=== PATIENT | male | born 1965 | race African-American/Black ===

== ENCOUNTER 2018-06-05 17:57 | Emergency (ER) | payer MEDICAID ==
[~2018-06-05] VITALS: Ht 162.6 cm; Wt 68.0 kg
[2018-06-05] MEDS ORDERED: ASPIRIN81 MG ORAL (18:02)
[2018-06-05] MEDS ORDERED: LISINOPRIL5 MG ORAL (18:02)
[2018-06-05] MEDS ORDERED: CARVEDILOL3.125 MG ORAL (18:02)
[2018-06-05] MEDS ORDERED: ATORVASTATIN CA20 MG ORAL (18:02)
--- NOTE | 2018-06-05 18:04 | NUR ---
Note eugenie in EDM - 06/05/18 at 1850 by GALILEA ED Nurse Note: patient came in by ambulance nausea and vomiting patient c/o pt. was BIBA from home with nausea vomiting abd pain since friday, pt. had bowel movement today
--- NOTE | 2018-06-05 18:04 | NUR ---
ED Nurse Note: patient came in from home by ambulance, c/o abd pain, nausea and vomiting patient said this pain started since , but it got worse today.
[2018-06-05] MEDS ORDERED: Sodium Chloride 500ML 500 ML IV ONE (18:10)
[2018-06-05] MEDS ORDERED: Isovue-300 100ml vial INJ PRN (18:15)
[2018-06-05] MEDS ORDERED: Morphine Sulfate 4mg/ml Inj (IV/IM USE ONLY) IVP ONE (18:15)
[2018-06-05 18:33] LABS: BASOPHILS % (AUTO) 0.7 % (0.0-2.0); EOSINOPHILS % (AUTO) 0.4 % (0.0-3.0); HEMATOCRIT 43.8 % (42.0-52.0); LYMPHOCYTES % (AUTO) 25.4 % (20.0-45.0); MEAN CORPUSCULAR VOLUME 91 FL (80-99); MONOCYTES % (AUTO) 6.4 % (1.0-10.0); NEUTROPHILS % (AUTO) 67.1 % (45.0-75.0); PLATELET COUNT 289 K/UL (150-450); RED BLOOD COUNT 4.83 M/UL (4.70-6.10); WHITE BLOOD COUNT 7.5 K/UL (4.8-10.8)
[2018-06-05 18:34] VITALS: BP 109/63
--- NOTE | 2018-06-05 18:37 | Emergency Room Report ---
History of Present Illness General Chief Complaint: Nausea Source: Patient Present Illness HPI patient presents with 2 days of epigastric pain that radiates diffusely. positive for vomiting, no diarrhea. no fever. no other assoc symptoms Allergies: Coded Allergies: No Known Allergies (Unverified , 06/05/18) Patient History Past Surgical History: CABG Pertinent Family History: none Nursing Documentation-PM Past Medical History: No History, Except For Hx Cardiac Problems: Yes - CABG in 2016 Hx Hypertension: Yes Review of Systems All Other Systems: negative except mentioned in HPI Physical Exam Vital Signs Date Time Temp Pulse Resp B/P (MAP) Pulse Ox O2 Delivery O2 Flow Rate FiO2 06/05/18 17:54 98.6 81 16 115/62 98 Room Air General Appearance: well appearing, no apparent distress Head: normocephalic, atraumatic ENT: hearing grossly normal, normal voice Respiratory: no respiratory distress, speaking full sentences Gastrointestinal: tenderness - diffusely, decreased bowel sounds Musculoskeletal: no calf tenderness Neurologic: alert, normal gait Psychiatric: mood/affect normal Medical Decision Making Diagnostic Impression: Primary Impression: Abdominal pain ER Course Patient presented was noted complexity or risk requiring multiple bedside evaluation. The patient is nontoxic-appearing. Has very conservative acute small bowel obstruction, intra-abdominal abscess, appendicitis, abdominal aortic aneurysm. The patient is able to part a by mouth challenge. He is alert. He has no other associated symptoms. He is afebrile. CT was reviewed. Blood work was reviewed as well. At this time I feel the patient will be discharged home with very close follow-up with his primary care physician as an outpatient to return if any change in symptoms or worsening symptoms. Laboratory Tests Test 06/05/18 18:19 06/05/18 18:38 White Blood Count 7.5 K/UL (4.8-10.8) Red Blood Count 4.83 M/UL (4.70-6.10) Hemoglobin 15.0 G/DL (14.2-18.0) Hematocrit 43.8 % (42.0-52.0) Mean Corpuscular Volume 91 FL (80-99) Mean Corpuscular Hemoglobin 31.0 PG (27.0-31.0) Mean Corpuscular Hemoglobin Concent 34.3 G/DL (32.0-36.0) Red Cell Distribution Width 11.0 % (11.6-14.8) L Platelet Count 289 K/UL (150-450) Mean Platelet Volume 6.5 FL (6.5-10.1) Neutrophils (%) (Auto) 67.1 % (45.0-75.0) Lymphocytes (%) (Auto) 25.4 % (20.0-45.0) Monocytes (%) (Auto) 6.4 % (1.0-10.0) Eosinophils (%) (Auto) 0.4 % (0.0-3.0) Basophils (%) (Auto) 0.7 % (0.0-2.0) Sodium Level 138 MMOL/L (136-145) Potassium Level 3.9 MMOL/L (3.5-5.1) Chloride Level 102 MMOL/L (98-107) Carbon Dioxide Level 26 MMOL/L (21-32) Anion Gap 10 mmol/L (5-15) Blood Urea Nitrogen 10 mg/dL (7-18) Creatinine 1.1 MG/DL (0.55-1.30) Estimate Glomerular Filtration Rate > 60 mL/min (>60) Glucose Level 93 MG/DL (74-106) Calcium Level 9.1 MG/DL (8.5-10.1) Total Bilirubin 0.5 MG/DL (0.2-1.0) Aspartate Amino Transferase (AST) 28 U/L (15-37) Alanine Aminotransferase (ALT) 43 U/L (12-78) Alkaline Phosphatase 60 U/L (46-116) Total Protein 8.0 G/DL (6.4-8.2) Albumin 4.2 G/DL (3.4-5.0) Globulin 3.8 g/dL Albumin/Globulin Ratio 1.1 (1.0-2.7) Lipase 88 U/L (73-393) Urine Color Yellow Urine Appearance Clear Urine pH 5 (4.5-8.0) Urine Specific [place] 1.020 (1.005-1.035) Urine Protein Negative (NEGATIVE) Urine Glucose (UA) Negative (NEGATIVE) Urine Ketones 2+ (NEGATIVE) H Urine Blood Negative (NEGATIVE) Urine Nitrite Negative (NEGATIVE) Urine Bilirubin Negative (NEGATIVE) Urine Urobilinogen Normal MG/DL (0.0-1.0) Urine Leukocyte Esterase Negative (NEGATIVE) Urine RBC 0-2 /HPF (0 - 0) H Urine WBC 0-2 /HPF (0 - 0) Urine Squamous Epithelial Cells Few /LPF (NONE/OCC) Urine Bacteria Few /HPF (NONE) Urine Mucus Many /LPF (NONE/OCC) H Last Vital Signs Date Time Temp Pulse Resp B/P (MAP) Pulse Ox O2 Delivery O2 Flow Rate FiO2 06/05/18 18:34 98.6 82 13 109/63 99 Room Air Disposition: HOME, SELF-CARE Condition: Stable Scripts Tramadol HCl (Tramadol HCl ER) 150 Mg Cpbp.25.75 50 MG ORAL QID PRN for For Pain for 7 Days, #20 CAP Prov: RHIANNA YBARRA 06/05/18 Patient Instructions: Abdominal Pain, Adult, [id number], Nausea, Adult RHIANNA YBARRA Jun 05, 2018 18:37
[2018-06-05 18:49] LABS: ANION GAP 10 mmol/L (5-15); BLOOD UREA NITROGEN 10 mg/dL (7-18); CALCIUM 9.1 MG/DL (8.5-10.1); CARBON DIOXIDE 26 MMOL/L (21-32); CHLORIDE 102 MMOL/L (98-107); CREATININE 1.1 MG/DL (0.55-1.30); POTASSIUM 3.9 MMOL/L (3.5-5.1); SODIUM 138 MMOL/L (136-145)
[2018-06-05 18:53] LABS: ALANINE AMINOTRANSFERASE 43 U/L (12-78); ALBUMIN 4.2 G/DL (3.4-5.0); ALBUMIN/GLOBULIN RATIO 1.1 (1.0-2.7); ALKALINE PHOSPHATASE 60 U/L (46-116); ASPARTATE AMINO TRANSFERASE 28 U/L (15-37); BILIRUBIN,TOTAL 0.5 MG/DL (0.2-1.0)
--- NOTE | 2018-06-05 18:58 | NUR ---
ED Nurse Note: patient went down for CT
--- NOTE | 2018-06-05 19:18 | NUR ---
HAND-OFF: Report given to Jo Ann Mathew RN.
[2018-06-05 19:19] LABS: APPEARANCE,URINE CLEAR; BILIRUBIN, URINE NEGATIVE (NEGATIVE); GLUCOSE, URINE (UA) NEGATIVE (NEGATIVE); KETONES,URINE 2+ (NEGATIVE); LEUKOCYTE ESTERASE ,URINE NEGATIVE (NEGATIVE); NITRITE,URINE NEGATIVE (NEGATIVE); PH,URINE 5 (4.5-8.0); PROTEIN,URINE NEGATIVE (NEGATIVE); UROBILINOGEN,URINE NORMAL MG/DL (0.0-1.0)
--- NOTE | 2018-06-05 19:23 | Diagnostic Imaging Report ---
EXAM: CT Abdomen and Pelvis With Intravenous Contrast CLINICAL HISTORY: ABD PAIN TECHNIQUE: Axial computed tomography images of the abdomen and pelvis with intravenous contrast. CTDI is 10.01 mGy and DLP is 454 mGy-cm. One or more of the following dose reduction techniques were used: automated exposure control, adjustment of the mA and/or kV according to patient size, use of iterative reconstruction technique. COMPARISON: No relevant prior studies available. FINDINGS: Lung bases: Unremarkable. ABDOMEN: Liver: Unremarkable. Gallbladder and bile ducts: The gallbladder is not visualized. Pancreas: Unremarkable. Spleen: Unremarkable. Adrenals: Unremarkable. Kidneys and ureters: Unremarkable. No hydronephrosis. Stomach and bowel: No domi mural thickening. Nonobstructive bowel gas pattern. PELVIS: Appendix: No findings to suggest acute appendicitis. Bladder: Unremarkable. Reproductive: Unremarkable. ABDOMEN and PELVIS: Intraperitoneal space: Unremarkable. Bones/joints: No acute fracture. Soft tissues: Unremarkable. Vasculature: Unremarkable. No abdominal aortic aneurysm. Lymph nodes: No enlarged lymph nodes. IMPRESSION: No acute findings.
[2018-06-05 19:29] LABS: COLOR,URINE YELLOW
--- NOTE | 2018-06-05 19:30 | NUR ---
ER Nurse Note: PT a&ox4, VSS, came back from radiology; awaitnig results. Pt denies pain, n/v. Will continue to monitor
[2018-06-05] MEDS ORDERED: TRAMADOL HCL150 MG ORAL (21:00)
[2018-06-05] MEDS ORDERED: ZOFRAN4 MG ORAL (22:12)
[2018-06-05 22:45] VITALS: BP 122/68
--- NOTE | 2018-06-05 22:45 | NUR ---
ER Nurse Note: Pt seen, treated, medically cleared by ERMD for discharge. Discharge instructions and prescriptions given with repeat verbalization by pt. Instructed pt to follow up with primary care phyican within one weel. Pt a&ox4, VSS, no signs of distress. IV removed, site clean and bandaged. ID band removed; left with all belongings on steady gait, via own transportation.
== END 2018-06-05 22:45 | disposition home or self-care (01) ==
LOC: EDBD 17:57 → EMR 19:37
DX: R10.13 Epigastric pain (principal); I10 Essential (primary) hypertension; Z95.1 Presence of aortocoronary bypass graft
CPT/HCPCS: 36415; 74177; 80053; 81001; 83690; 85025; 96374; 96375; 99284; J2270; J2405; Q9967

== ENCOUNTER 2019-01-21 01:47 | Inpatient (IN) | payer MEDICAID ==
[~2019-01-21] VITALS: Ht 162.6 cm; Wt 56.7 kg
--- NOTE | 2019-01-21 01:45 | NUR ---
ED Nurse Note: pt BIBA RA 68 from work for C/O CP 12/26 since few hours ago. non radiating. Nitro x3, 161mg ASA given by cook boat and is ineffective. Bp 100/80, pr 82, rr 15, sp02 100% RA
[~2019-01-21 01:47] MED LIST: ASPIRIN81 MG ORAL; ATORVASTATIN CA20 MG ORAL; CARVEDILOL3.125 MG ORAL; LISINOPRIL5 MG ORAL; TRAMADOL HCL150 MG ORAL; ZOFRAN4 MG ORAL
[2019-01-21 01:48] VITALS: BP 100/80
--- NOTE | 2019-01-21 02:09 | Emergency Room Report ---
History of Present Illness General Chief Complaint: Chest Pain Source: Patient Present Illness HPI This is a 53-year-old male with a history of [place] in the past with one-vessel CABG in 2016. He presents with complaint of chest pain. Onset about an hour ago. Pain is midsternal pain. No radiation. Sharp in nature. 8 out of 10. No relief with nitro or aspirin by EMS. Said it felt similar to previous [place]. But he also has chills and a cough. Cough has been starting this morning. No exertional component. No diaphoresis. No shortness of breath. Allergies: Coded Allergies: No Known Allergies (Unverified , 06/05/18) Patient History Past Medical History: see triage record, old chart reviewed, HTN Past Surgical History: CABG Pertinent Family History: none Social History: Denies: smoking, alcohol use Immunizations: other Reviewed Nursing Documentation: PMH: Agreed; PSxH: Agreed Nursing Documentation-PMH Hx Cardiac Problems: Yes - CABG in 2016 Hx Hypertension: Yes Review of Systems Eye: Denies: eye pain, blurred vision ENT: Denies: ear pain, nose congestion, throat swelling Respiratory: Reports: cough; Denies: shortness of breath Cardiovascular: Reports: chest pain; Denies: palpitations Gastrointestinal: Denies: abdominal pain, diarrhea, nausea, vomiting Musculoskeletal: Denies: back pain, joint pain Skin: Denies: rash Neurological: Denies: headache, numbness Endocrine: Denies: increased thirst, increased urine Hematologic/Lymphatic: Denies: easy bruising All Other Systems: negative except mentioned in HPI Physical Exam Vital Signs Date Time Temp Pulse Resp B/P (MAP) Pulse Ox O2 Delivery O2 Flow Rate FiO2 01/21/19 01:41 98.2 89 16 116/68 (84) 98 Room Air 01/21/19 01:48 100 VS normal Sp02 EP Interpretation: reviewed, normal General Appearance: well appearing, no apparent distress, alert Head: normocephalic, atraumatic Eyes: bilateral eye PERRL, bilateral eye EOMI ENT: hearing grossly normal, normal pharynx Neck: full range of motion, supple, no meningismus Respiratory: chest non-tender, lungs clear, normal breath sounds Cardiovascular #1: regular rate, rhythm, no murmur Gastrointestinal: normal bowel sounds, non tender, no mass, no organomegaly, no bruit, non-distended Musculoskeletal: back normal, gait/station normal, normal range of motion Psychiatric: mood/affect normal Medical Decision Making Diagnostic Impression: Primary Impression: Chest pain Qualified Codes: R07.9 - Chest pain, unspecified ER Course Patient with presents with chest pain. He does have previous CABG and said it was similar to that. No evidence of ST elevation [place]. No evidence of PE, dissection, pneumonia to name a few. Will admit for further work-up. I discussed the case with Dr. Beatty. Lab Results Impression Labs unremarkable EKG Diagnostic Results Rate: normal Rhythm: NSR ST Segments: no acute changes ASA given to the pt in ED: No Rhythm Strip Diag. Results EP Interpretation: yes Rate: 88 Rhythm: NSR, no PVC's, no ectopy Chest X-Ray Diagnostic Results Chest X-Ray Diagnostic Results : Chest X-Ray Ordered: Yes # of Views/Limited/Complete: 1 View Indication: Chest Pain EP Interpretation: Yes Interpretation: no consolidation, no effusion, no pneumothorax, no acute cardiopulmonary disease Impression: No acute disease Electronically Signed by: Raghavendra North MD Last Vital Signs Date Time Temp Pulse Resp B/P (MAP) Pulse Ox O2 Delivery O2 Flow Rate FiO2 01/21/19 01:48 77 18 Room Air 100 01/21/19 01:48 98.4 100/80 100 Status: improved Disposition: ADMITTED INPATIENT Condition: Serious Raghavendra North MD Jan 21, 2019 02:09
[2019-01-21 02:15] LABS: BASOPHILS % (AUTO) 1.1 % (0.0-2.0); EOSINOPHILS % (AUTO) 1.6 % (0.0-3.0); HEMATOCRIT 44.8 % (42.0-52.0); HEMOGLOBIN 14.9 G/DL (14.2-18.0); LYMPHOCYTES % (AUTO) 13.7 % (20.0-45.0); MEAN CORPUSCULAR VOLUME 92 FL (80-99); MONOCYTES % (AUTO) 10.6 % (1.0-10.0); PLATELET COUNT 216 K/UL (150-450); RED BLOOD COUNT 4.87 M/UL (4.70-6.10); RED CELL DISTRIBUTION WIDTH 11.7 % (11.6-14.8); WHITE BLOOD COUNT 6.8 K/UL (4.8-10.8)
[2019-01-21] MEDS ORDERED: Morphine Sulfate 4mg/ml Inj (IV USE ONLY) IVP ONE (02:15)
--- NOTE | 2019-01-21 02:17 | NUR ---
ED Nurse Note: xray at bed side.
[2019-01-21 02:23] LABS: ANION GAP 9 mmol/L (5-15); BLOOD UREA NITROGEN 19 mg/dL (7-18); CALCIUM 8.9 MG/DL (8.5-10.1); CARBON DIOXIDE 27 MMOL/L (21-32); CHLORIDE 107 MMOL/L (98-107); CREATININE 1.1 MG/DL (0.55-1.30); POTASSIUM 3.9 MMOL/L (3.5-5.1); SODIUM 143 MMOL/L (136-145)
[2019-01-21 02:28] LABS: ALANINE AMINOTRANSFERASE 22 U/L (12-78); ALBUMIN 3.9 G/DL (3.4-5.0); ALBUMIN/GLOBULIN RATIO 1.3 (1.0-2.7); ALKALINE PHOSPHATASE 62 U/L (46-116); ASPARTATE AMINO TRANSFERASE 13 U/L (15-37); BILIRUBIN,TOTAL 0.5 MG/DL (0.2-1.0)
[2019-01-21 02:31] LABS: APPEARANCE,URINE CLEAR; BILIRUBIN, URINE NEGATIVE (NEGATIVE); COLOR,URINE PALE YELLOW; GLUCOSE, URINE (UA) NEGATIVE (NEGATIVE); KETONES,URINE NEGATIVE (NEGATIVE); LEUKOCYTE ESTERASE ,URINE NEGATIVE (NEGATIVE); NITRITE,URINE NEGATIVE (NEGATIVE); PH,URINE 6 (4.5-8.0); PROTEIN,URINE NEGATIVE (NEGATIVE); UROBILINOGEN,URINE NORMAL MG/DL (0.0-1.0)
--- NOTE | 2019-01-21 03:05 | NUR ---
ED Nurse Note: pt has a knife, given to security (sally).
--- NOTE | 2019-01-21 03:45 | NUR ---
ER DISCHARGE NOTE: pt was transported to Tele 206 via bed with monitor box accompanied by general lot attendant and RN via damon in stable condition. IV site remain in left hand 20g. Report given to ALETA Peterson. Belonging list signed. pharmacy slip to pick up worker home meds given to ALETA Peterson.
[2019-01-21 04:00] VITALS: BP 98/60
--- NOTE | 2019-01-21 04:00 | NUR ---
NURSE NOTES: Received report from ALETA Santana. Patient arrived from ED via gurney. Patient shows no signs of acute distress. pt. c/o mild chest discomfort. AOx4. Respiration even and non labored on room air O2 sat 97%. No sob noted. IV noted left hand 20g patent and intact. night monitor on showing NSR. VS 98/60, HR 65, R-18, T 97.3. Oriented to room and unit. Belongings checked with another RN. Pt. have a lea of $216 and kept at bedside. Offered to be kept in safe but pt. insisted to keep it with him. Call light within reach. Bed in lowest position, wheels locked and alarm on. Called Dr. Beatty for admission orders, awaiting call back.
[2019-01-21] MEDS ORDERED: Nitroglycerin Subl 0.4mg tab SL PRN (06:45)
[2019-01-21] MEDS ORDERED: HYDROcodone/Acetamin 5/325 tab ORAL PRN (06:45)
--- NOTE | 2019-01-21 07:30 | NUR ---
NURSE NOTES: Nurse report given by ALETA Peterson. Patient's resting in bed, low de [place] cruz, bed at lowest position, break engaged, call light within reach, side rails x 2, safety precaution on. Patient complains of pain, 5/10 but refused pain medication. Otherwise, no s/s of SOB or distress noted. IV is patent, asymptomatic and flushed well. Will continue to monitor.
--- NOTE | 2019-01-21 07:42 | NUR ---
HAND-OFF: Report given to ALETA Zelaya.
[2019-01-21 07:47] LABS: CHOLESTEROL 142 MG/DL (< 200); HDL CHOLESTEROL 53 MG/DL (40-60); TRIGLYCERIDES 64 MG/DL (30-150)
[2019-01-21 08:00] VITALS: BP 96/59
[2019-01-21] MEDS: Heparin 5000 units/ml inj SUBQ SCH ×2 (09:04→20:56)
[2019-01-21] MEDS: Lisinopril 2.5mg tab ORAL SCH (09:45)
[2019-01-21] MEDS: Aspirin Baby 81mg ORAL SCH (09:45)
--- NOTE | 2019-01-21 10:00 | NUR ---
CASE MANAGEMENT:REVIEW 53 YR OLD MALE BIBA FROM HOME PMH: CABG 2016 SI: CHEST PAIN/ACS 98.3 89 16 100/80 98% ON RA TROPONIN(-) X2 IS: NITRO X3 DIRECTOR OF RECRUITMENT ASA PO DIRECTOR OF RECRUITMENT IV MORPHINE CHEST XRAY : TO TELEMETRY UNIT DCP: FROM HOME IS:COREG PO Q12 ASA PO QD LISINOPRIL PO QD HEPARIN SQ Q12 NORCO PO Q4HRS PRN
--- NOTE | 2019-01-21 11:17 | Consultation ---
History of Present Illness General Date patient seen: Jan 21, 2019 Chief Complaint: Chest Pain Present Illness HPI 53-year-old male with a history of [place] in the past with one-vessel CABG in 2016 ( on lisinopril and Coreg) presented to ER with complaint of chest pain about an hour before presentation. Pain is midsternal pain. Sharp in nature. No relief with nitro or aspirin by EMS. But he also has chills and a cough for one day. He is admitted to telemetry for further management. Allergies: Coded Allergies: No Known Allergies (Unverified , 06/05/18) Medication History Scheduled Aspirin* (Aspirin*), 81 MG ORAL DAILY, (Reported) Atorvastatin Calcium* (Atorvastatin Calcium*), 10 MG ORAL BEDTIME, (Reported) Carvedilol* (Carvedilol*), 3.125 MG ORAL EVERY 12 HOURS, (Reported) Lisinopril (Lisinopril*), 2.5 MG ORAL DAILY, (Reported) Scheduled PRN Ondansetron (Zofran), 4 MG ORAL Q6H PRN for Nausea & Vomiting Tramadol HCl (Tramadol HCl ER), 50 MG ORAL QID PRN for For Pain Patient History Healthcare decision maker Resuscitation status Full Code Advanced Directive on File Review of Systems Eye: Reports: no symptoms Respiratory: Reports: no symptoms Cardiovascular: Reports: no symptoms Physical Exam General Appearance: thin Lines, tubes and drains: peripheral HEENT: normocephalic, atraumatic Neck: non-tender, normal alignment, normal inspection Respiratory/Chest: chest wall non-tender, lungs clear Cardiovascular/Chest: normal peripheral pulses, normal rate Abdomen: normal bowel sounds, non tender Genitourinary/Rectal: normal genital exam Extremities: normal range of motion Skin Exam: normal pigmentation 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 Last 24 Hour Vital Signs Date Time Temp Pulse Resp B/P (MAP) Pulse Ox O2 Delivery O2 Flow Rate FiO2 01/21/19 09:45 96/59 01/21/19 09:00 Room Air 01/21/19 08:00 97.0 78 20 96/59 (71) 96 01/21/19 08:00 77 01/21/19 05:00 Room Air 01/21/19 04:00 97.3 65 19 98/60 (73) 97 01/21/19 03:54 76 01/21/19 03:45 98.0 65 15 106/78 100 Room Air 01/21/19 01:48 77 18 Room Air 100 01/21/19 01:48 98.4 77 18 100/80 100 Room Air 01/21/19 01:41 98.2 89 16 116/68 (84) 98 Room Air Intake and Output 01/20/19 01/21/19 18:59 06:59 Intake Total 360 ml Balance 360 ml Intake Oral 360 ml # Voids 2 Laboratory Tests Test 01/21/19 02:00 01/21/19 02:10 01/21/19 07:13 White Blood Count 6.8 K/UL (4.8-10.8) Red Blood Count 4.87 M/UL (4.70-6.10) Hemoglobin 14.9 G/DL (14.2-18.0) Hematocrit 44.8 % (42.0-52.0) Mean Corpuscular Volume 92 FL (80-99) Mean Corpuscular Hemoglobin 30.5 PG (27.0-31.0) Mean Corpuscular Hemoglobin Concent 33.2 G/DL (32.0-36.0) Red Cell Distribution Width 11.7 % (11.6-14.8) Platelet Count 216 K/UL (150-450) Mean Platelet Volume 6.3 FL (6.5-10.1) L Neutrophils (%) (Auto) 73.0 % (45.0-75.0) Lymphocytes (%) (Auto) 13.7 % (20.0-45.0) L Monocytes (%) (Auto) 10.6 % (1.0-10.0) H Eosinophils (%) (Auto) 1.6 % (0.0-3.0) Basophils (%) (Auto) 1.1 % (0.0-2.0) Sodium Level 143 MMOL/L (136-145) Potassium Level 3.9 MMOL/L (3.5-5.1) Chloride Level 107 MMOL/L (98-107) Carbon Dioxide Level 27 MMOL/L (21-32) Anion Gap 9 mmol/L (5-15) Blood Urea Nitrogen 19 mg/dL (7-18) H Creatinine 1.1 MG/DL (0.55-1.30) Estimat Glomerular Filtration Rate > 60 mL/min (>60) Glucose Level 108 MG/DL (74-106) H Calcium Level 8.9 MG/DL (8.5-10.1) Total Bilirubin 0.5 MG/DL (0.2-1.0) Aspartate Amino Transf (AST/SGOT) 13 U/L (15-37) L Alanine Aminotransferase (ALT/SGPT) 22 U/L (12-78) Alkaline Phosphatase 62 U/L (46-116) Troponin I 0.033 ng/mL (0.000-0.056) 0.028 ng/mL (0.000-0.056) Total Protein 7.0 G/DL (6.4-8.2) Albumin 3.9 G/DL (3.4-5.0) Globulin 3.1 g/dL Albumin/Globulin Ratio 1.3 (1.0-2.7) Urine Color Pale yellow Urine Appearance Clear Urine pH 6 (4.5-8.0) Urine Specific [place] 1.020 (1.005-1.035) Urine Protein Negative (NEGATIVE) Urine Glucose (UA) Negative (NEGATIVE) Urine Ketones Negative (NEGATIVE) Urine Blood Negative (NEGATIVE) Urine Nitrite Negative (NEGATIVE) Urine Bilirubin Negative (NEGATIVE) Urine Urobilinogen Normal MG/DL (0.0-1.0) Urine Leukocyte Esterase Negative (NEGATIVE) Triglycerides Level 64 MG/DL (30-150) Cholesterol Level 142 MG/DL (< 200) LDL Cholesterol 68 mg/dL (<100) HDL Cholesterol 53 MG/DL (40-60) Cholesterol/HDL Ratio 2.7 (3.3-4.4) L Height (Feet): 5 Height (Inches): 4.00 Weight (Pounds): 125 Medications Current Medications Medications (Trade) Dose Ordered Sig/Abby Route PRN Reason Start Time Stop Time Status Last Admin Dose Admin Acetaminophen/ Hydrocodone Bitart ([place] 5/325) 1 tab Q4H PRN ORAL Moderate Pain (Pain Scale 4-6) 01/21/19 06:45 01/28/19 06:44 01/21/19 09:03 Aspirin (ASA) 81 mg DAILY ORAL 01/21/19 10:00 02/20/19 09:59 01/21/19 09:45 Atorvastatin Calcium (Lipitor) 10 mg BEDTIME ORAL 01/21/19 21:00 02/20/19 20:59 Carvedilol (Coreg) 3.125 mg EVERY 12 HOURS ORAL 01/21/19 21:00 02/20/19 20:59 Heparin Sodium (Porcine) (Heparin 5000 units/ml) 5,000 units EVERY 12 HOURS SUBQ 01/21/19 09:00 02/20/19 08:59 01/21/19 09:04 Lisinopril (Zestril) 2.5 mg DAILY ORAL 01/21/19 10:00 02/20/19 09:59 01/21/19 09:45 Nitroglycerin (Ntg) 0.4 mg Q5M PRN SL Prn Chest Pain 01/21/19 06:45 02/20/19 06:44 Ondansetron HCl (Zofran) 4 mg Q6H PRN ORAL Nausea & Vomiting 01/21/19 09:45 02/20/19 09:44 Assessment/Plan Problem List: (1) Acute bronchitis ICD Codes: J20.9 - Acute bronchitis, unspecified SNOMED: 88355702 (2) Atypical chest pain ICD Codes: R07.89 - Other chest pain SNOMED: 078928328 (3) Costochondritis ICD Codes: M94.0 - Chondrocostal junction syndrome [[place]] SNOMED: 13243569 (4) S/P CABG x 1 ICD Codes: Z95.1 - Presence of aortocoronary bypass graft SNOMED: 73456218, 767096122, 180914662 (5) CAD (coronary artery disease) ICD Codes: I25.10 - Atherosclerotic heart disease of [place] coronary artery without angina pectoris SNOMED: 73701956 Assessment/Plan: echo, troponin stress test in am respiratory treatment po Bactrim for bronchitis. Geovanna Rivera MD Jan 21, 2019 11:17
[2019-01-21] MEDS ORDERED: Promethazine/Codeine 5ml UD ORAL PRN (11:30)
[2019-01-21] MEDS ORDERED: Albuterol/Ipratropium 3ml neb HHN PRN (11:30)
[2019-01-21 12:00] VITALS: BP 90/56
--- NOTE | 2019-01-21 15:16 | Diagnostic Imaging Report ---
Indication: Chest pain Technique: One view of the chest Comparison: none Findings: Lungs and pleural spaces are clear. There are median sternotomy sutures. Normal heart size Impression: No acute process
[2019-01-21 16:00] VITALS: BP 97/62
--- NOTE | 2019-01-21 16:45 | History & Physical ---
History and Physical History & Physicial Dictated for Int Med-Dr Beatty no. [id number]. Antoine Marie MD Jan 21, 2019 16:45
[2019-01-21] MEDS: Bactrim-DS 1 tab ORAL SCH (17:23)
--- NOTE | 2019-01-21 18:30 | History and Physical Report ---
DATE OF ADMISSION: 01/21/2019 CHIEF COMPLAINT: The patient is a 53-year-old male with history of coronary artery disease, who presents with a chief complaint of chest pain. HISTORY OF PRESENT ILLNESS: Began yesterday, January 20, 2019. The patient was at work. The patient began to experience chest pain. Chest pain is substernal. There was no radiation to the jaw or to the left shoulder. The patient presented to [place] emergency room. The patient is admitted with chest pain to rule out acute coronary syndrome. REVIEW OF SYSTEMS: CONSTITUTIONAL: The patient denies weight loss or weight gain. The patient denies fevers or chills. HEENT: The patient denies ear or throat pain. The patient denies headache. CARDIOVASCULAR: The patient complains of chest pain as above. The patient denies palpitations. CHEST: The patient denies wheeze or shortness of breath. ABDOMINAL: The patient denies nausea, vomiting, diarrhea, or constipation. GENITOURINARY: The patient denies dysuria or increased frequency of urination. NEUROMUSCULAR: The patient denies seizures or generalized weakness. PAST MEDICAL HISTORY: Significant for coronary artery disease. PAST SURGICAL HISTORY: Significant for, 1. Coronary artery bypass graft of 1 vessel in 2016 at [facility]. 2. Cholecystectomy in 1996. CURRENT MEDICATIONS: 1. Aspirin 81 mg one tablet p.o. daily. 2. Atorvastatin 10 mg 2 tablets p.o. at bedtime. 3. Carvedilol 3.125 mg p.o. twice daily. 4. Lisinopril 5 mg p.o. daily. 5. Tramadol ER 150 mg p.o. daily. ALLERGIES: No known drug allergies. SOCIAL HISTORY: The patient is single and lives with his sister. The patient denies tobacco use. The patient admits to occasional alcohol use. PHYSICAL EXAMINATION: VITAL SIGNS: Temperature 97.3, respirations 19, pulse 65, and blood pressure 98/60. GENERAL: The patient is a well-developed and well-nourished thin-appearing male, in no apparent distress. HEENT: Eyes, pupils are equal and responsive to light and accommodation. Extraocular movements are intact. NECK: Supple without lymphadenopathy. CHEST: Lungs are clear to auscultation bilaterally without wheezes or rales. CARDIOVASCULAR: Regular rhythm and rate. S1 and S2 are normal without murmurs, rubs, or gallops. ABDOMEN: Soft, nontender, and nondistended. Positive bowel sounds. No evidence of hepatosplenomegaly. Currently, no rebound or guarding noted. EXTREMITIES: Negative for clubbing, cyanosis, or edema. RECTAL/GENITAL: Not performed. NEUROLOGIC: Cranial nerves II through XII are grossly intact without focal deficits. Motor strength is 5/5 bilaterally. Deep tendon reflexes are 2+ plantar. DIAGNOSTIC DATA: An EKG demonstrated a sinus rhythm with lateral lead ST elevation. LABORATORY STUDIES: WBC 6.8, hemoglobin 14.9, hematocrit 44.8, and platelets 216,000. Sodium 143, potassium 3.9, chloride 107, CO2 27, BUN 19, creatinine 1.1, and glucose 108. Troponin 0.033. ASSESSMENT: This is a 53-year-old male. 1. Chest pain. 2. History of coronary artery disease. 3. Hypertension. 4. Hypercholesterolemia. TREATMENT: 1. Chest pain/coronary artery disease. A Cardiology consultation has been obtained with Dr. Prince Leavitt. The patient is scheduled for a Cardiolite stress test on January 22, 2019. We will follow recommendations of Cardiology. 2. Hypertension. Continue lisinopril and carvedilol as above. 3. Hypercholesterolemia. Continue atorvastatin as above. Antoine Marie M.D. DR: MANOJ JOB#: [id number] CC:
--- NOTE | 2019-01-21 19:30 | NUR ---
NURSE NOTES: Received pt from ALETA Zelaya. Pt is awake in bed. Pt complained of SOB. Received breathing treatment per RT. IV site intact. Bed locked in lowest position. Call light within reach. Will continue with plan of care.
--- NOTE | 2019-01-21 19:30 | NUR ---
HAND-OFF: Report given to ALETA Burnett. Plan of care endorsed
--- NOTE | 2019-01-21 19:50 | NUR ---
NURSE NOTES: Received pt from ALETA Bridges. Pt is awake and resting in bed, in no acute distress.. IV site intact and patent. Bilateral soft wrist restraints off with daughter at bedside. Bed locked in lowest position, call light within reach. Will continue with plan of care. Addendum: 01/21/19 at 1953 by NIMESH TURNER RN Wrong pt. Disregard note.
--- NOTE | 2019-01-21 19:56 | NUR ---
NURSE NOTES: Assessed pt for signs of sob or cp. Pt expressed no feelings of SOB or chest pain.
[2019-01-21 20:00] VITALS: BP 107/65
[2019-01-21] MEDS: Theophylline ER 100mg ORAL SCH (20:55)
[2019-01-22] VITALS: BP_SYST 94; BP_SYST 99; BP_DIAS 51; BP_DIAS 55
[2019-01-22 04:00] VITALS: BP_SYST 95; BP_SYST 98; BP_DIAS 61; BP_DIAS 63
[2019-01-22 07:09] LABS: BASOPHILS % (AUTO) 0.8 % (0.0-2.0); EOSINOPHILS % (AUTO) 1.5 % (0.0-3.0); HEMATOCRIT 46.3 % (42.0-52.0); HEMOGLOBIN 15.2 G/DL (14.2-18.0); LYMPHOCYTES % (AUTO) 16.6 % (20.0-45.0); MEAN CORPUSCULAR VOLUME 93 FL (80-99); MONOCYTES % (AUTO) 9.9 % (1.0-10.0); NEUTROPHILS % (AUTO) 71.1 % (45.0-75.0); PLATELET COUNT 232 K/UL (150-450); RED BLOOD COUNT 4.97 M/UL (4.70-6.10); RED CELL DISTRIBUTION WIDTH 12.2 % (11.6-14.8); WHITE BLOOD COUNT 7.6 K/UL (4.8-10.8)
[2019-01-22 07:13] LABS: ALANINE AMINOTRANSFERASE 18 U/L (12-78); ALBUMIN 3.7 G/DL (3.4-5.0); ALKALINE PHOSPHATASE 57 U/L (46-116); ANION GAP 11 mmol/L (5-15); ASPARTATE AMINO TRANSFERASE 13 U/L (15-37); BILIRUBIN,TOTAL 0.3 MG/DL (0.2-1.0); BLOOD UREA NITROGEN 11 mg/dL (7-18); CALCIUM 8.9 MG/DL (8.5-10.1); CARBON DIOXIDE 24 MMOL/L (21-32); CHLORIDE 106 MMOL/L (98-107); CREATININE 1.1 MG/DL (0.55-1.30); PHOSPHORUS 3.7 MG/DL (2.5-4.9); POTASSIUM 3.9 MMOL/L (3.5-5.1); SODIUM 141 MMOL/L (136-145)
--- NOTE | 2019-01-22 07:32 | NUR ---
HAND-OFF: Report given to ALETA Robles. Endorsed plan of care.
[2019-01-22 08:00] VITALS: BP 106/59
--- NOTE | 2019-01-22 08:07 | NUR ---
NURSE NOTES: Received report from ALETA Cates. The patient is resting on the bed without acute distress or shortness of breath. The patient's bed in the lowest position, call light in reach, and fall and aspiration precaution reinforced. IV site on L hand is intact and patent. Informed the patient that he is scheduled for Treadmill stress test today. Will continue plan of care.
[2019-01-22] MEDS: Lisinopril 2.5mg tab ORAL SCH (09:00)
[2019-01-22] MEDS: Theophylline ER 100mg ORAL SCH (09:00)
[2019-01-22] MEDS: Aspirin Baby 81mg ORAL SCH (09:21)
[2019-01-22] MEDS: Bactrim-DS 1 tab ORAL SCH ×2 (09:21→17:18)
[2019-01-22] MEDS: Heparin 5000 units/ml inj SUBQ SCH (09:24)
--- NOTE | 2019-01-22 10:35 | NUR ---
NURSE NOTES: Medication held per protocol and cardiology checklist completed. The patient completed 1st step of Treadmill stress test without acute distress or shortness of breath. Will continue plan of care.
--- NOTE | 2019-01-22 11:32 | Pulmonology Progress Note ---
Assessment/Plan Problems: (1) Acute bronchitis (2) Atypical chest pain (3) Costochondritis (4) S/P CABG x 1 (5) CAD (coronary artery disease) Assessment/Plan all troponin are negative stress test pending echo reviewed, EF wnl,mild diastolic dysfunction. Subjective ROS Limited/Unobtainable: No Constitutional: Reports: no symptoms HEENT: Repors: no symptoms Respiratory: Reports: no symptoms Allergies: Coded Allergies: No Known Allergies (Unverified , 06/05/18) Objective Last 24 Hour Vital Signs Date Time Temp Pulse Resp B/P (MAP) Pulse Ox O2 Delivery O2 Flow Rate FiO2 01/22/19 09:00 Room Air 01/22/19 09:00 106/59 01/22/19 09:00 97 106/59 01/22/19 08:00 98.6 97 20 106/59 (75) 98 01/22/19 08:00 84 01/22/19 04:00 96.8 71 20 95/61 (72) 96 01/22/19 04:00 71 01/22/19 00:00 77 01/22/19 00:00 97.7 77 20 99/51 (67) 97 01/21/19 21:00 Room Air 01/21/19 20:58 89 113/53 01/21/19 20:00 94 01/21/19 20:00 98.1 94 20 107/65 (79) 99 01/21/19 19:27 83 20 100 Room Air 21 78 20 97 01/21/19 16:00 98.2 82 20 97/62 (74) 98 01/21/19 16:00 88 01/21/19 12:00 97.3 82 20 90/56 (67) 98 01/21/19 12:00 66 Intake and Output 01/21/19 01/22/19 18:59 06:59 Intake Total 450 ml Balance 450 ml Intake Oral 450 ml # Voids 2 1 General Appearance: WD/WN HEENT: normocephalic Respiratory/Chest: chest wall non-tender, lungs clear Cardiovascular: normal peripheral pulses, normal rate Abdomen: normal bowel sounds, soft, non tender Genitourinary: normal external genitalia Extremities: no cyanosis Neurologic/Psychiatric: building custodian II-XII grossly normal, no motor/sensory deficits Lymphatic: no neck adenopathy Microbiology Date/Time Source Procedure Growth Status 01/21/19 11:30 Sputum Gram Stain Pending Resulted 01/21/19 11:30 Sputum Sputum Culture - Preliminary NORMAL UPPER RESPIRATORY VICK AT 24 ... Resulted Laboratory Tests 01/21/19 15:20: Troponin I 0.052 01/22/19 05:44: Troponin I 0.026, White Blood Count 7.6, Red Blood Count 4.97, Hemoglobin 15.2, Hematocrit 46.3, Mean Corpuscular Volume 93, Mean Corpuscular Hemoglobin 30.6, Mean Corpuscular Hemoglobin Concent 32.8, Red Cell Distribution Width 12.2, Platelet Count 232, Mean Platelet Volume 7.0, Neutrophils (%) (Auto) 71.1, Lymphocytes (%) (Auto) 16.6L, Monocytes (%) (Auto) 9.9, Eosinophils (%) (Auto) 1.5, Basophils (%) (Auto) 0.8, Erythrocyte Sedimentation Rate 4, Sodium Level 141, Potassium Level 3.9, Chloride Level 106, Carbon Dioxide Level 24, Anion Gap 11, Blood Urea Nitrogen 11, Creatinine 1.1, Estimat Glomerular Filtration Rate > 60, Glucose Level 94, Calcium Level 8.9, Phosphorus Level 3.7, Magnesium Level 1.9, Total Bilirubin 0.3, Aspartate Amino Transf (AST/SGOT) 13L, Alanine Aminotransferase (ALT/SGPT) 18, Alkaline Phosphatase 57, Total Protein 7.4, Albumin 3.7, Globulin 3.7, Albumin/Globulin Ratio 1.0 Current Medications Medications (Trade) Dose Ordered Sig/Abby Route PRN Reason Start Time Stop Time Status Last Admin Dose Admin Acetaminophen/ Hydrocodone Bitart ([place] 5/325) 1 tab Q4H PRN ORAL Moderate Pain (Pain Scale 4-6) 01/21/19 06:45 01/28/19 06:44 01/21/19 09:03 Albuterol/ Ipratropium (Albuterol/ Ipratropium) 3 ml Q4H PRN HHN Shortness of Breath 01/21/19 11:30 01/26/19 11:29 01/21/19 19:26 Aspirin (ASA) 81 mg DAILY ORAL 01/21/19 10:00 02/20/19 09:59 01/22/19 09:21 Atorvastatin Calcium (Lipitor) 10 mg BEDTIME ORAL 01/21/19 21:00 02/20/19 20:59 01/21/19 20:54 Carvedilol (Coreg) 3.125 mg EVERY 12 HOURS ORAL 01/21/19 21:00 02/20/19 20:59 Heparin Sodium (Porcine) (Heparin 5000 units/ml) 5,000 units EVERY 12 HOURS SUBQ 01/21/19 09:00 02/20/19 08:59 01/22/19 09:24 Lisinopril (Zestril) 2.5 mg DAILY ORAL 01/21/19 10:00 02/20/19 09:59 01/21/19 09:45 Nitroglycerin (Ntg) 0.4 mg Q5M PRN SL Prn Chest Pain 01/21/19 06:45 02/20/19 06:44 Ondansetron HCl (Zofran) 4 mg Q6H PRN ORAL Nausea & Vomiting 01/21/19 09:45 02/20/19 09:44 01/21/19 18:51 Promethazine HCl/ Codeine (Phenergan with Codeine) 5 ml Q4H PRN ORAL For Cough 01/21/19 11:30 02/20/19 11:29 Theophylline (Finn-Dur) 100 mg EVERY 12 HOURS ORAL 01/21/19 21:00 02/20/19 20:59 01/21/19 20:55 Trimethoprim/ Sulfamethoxazole (Bactrim-DS) 1 tab TWICE A DAY ORAL 01/21/19 18:00 01/28/19 17:59 01/22/19 09:21 Geovanna Rivera MD Jan 22, 2019 11:32
--- NOTE | 2019-01-22 12:20 | NUR ---
NURSE NOTES: The patient safely completed 2nd part of Treadmill stress test with RN assist at the side of the procedure room. No acute distress or shortness of breath noted. Will continue plan of care.
--- NOTE | 2019-01-22 13:17 | Cardiology Report ---
APPROVED REPORT EXAM: Two-dimensional and M-mode echocardiogram with Doppler and color Doppler. M-Mode DIMENSIONS IVSd0.7 (0.7-1.1cm)Left Atrium (MM)3.1 (1.6-4.0cm) LVDd4.0 (3.5-5.6cm)Aortic Root2.2 (2.0-3.7cm) PWd0.7 (0.7-1.1cm)Aortic Cusp Exc.1.6 (1.5-2.0cm) IVSs1.1 cm LVDs2.8 (2.5-4.0cm) PWs1.1 cm Normal left ventricular chamber size, systolic function and wall motion . Left ventricular ejection fraction estimated to be 55%. No left ventricular hypertrophy. No pericardial fat or effusion. All other cardiac chamber sizes are within normal limits. Thickened mitral valve leaflets with normal excursion. Focal aortic valve sclerosis with adequate cusp excursion. Mitral annulus and aortic root calcification. Normal pulmonic valve structure. Normal tricuspid valve structure. IVC at normal size with physiologic collapse. A color flow and spectral Doppler study was performed and revealed: No aortic insufficiency. Trace mitral regurgitation. Mitral diastolic velocities suggest reduced left ventricular relaxation c/w mild LV diastolic dysfunction (Grade I ) Mild tricuspid regurgitation. Tricuspid systolic velocities suggests peak right ventricular systolic pressure of 18mmHg,consistent with moderate pulmonary hypertension. Pulmonic regurgitation present.
--- NOTE | 2019-01-22 14:32 | NUR ---
NM Myocardial Perfusion scan complete.
--- NOTE | 2019-01-22 15:08 | Diagnostic Imaging Report ---
Indication: chest pain Technique: The study was conducted under the supervision of a senior research project manager. Exercise on a treadmill utilizing (Ham protocol) followed by intravenous administration of 32.1 mCi of technetium 99m Myoview was performed. Three plane SPECT imaging of the heart was then performed. A resting study was performed as part of the one-day protocol with 10.5 mCi of technetium 99m myoview injected intravenously at that time. Three plane SPECT imaging of the heart was obtained. Comparison: None Clinical data: Patient exercised for 4 minutes 15 seconds. Target heart rate achieved. Patient experienced no symptoms such as shortness of breath or chest pain. 85% maximum predicted heart rate: 135 Resting heart rate: 89. Peak exercise heart rate: 162 bpm. Resting BP: 103/80. Peak exercise BP: 120/90 No EKG changes demonstrated. Normal sinus rhythm demonstrated part senior research project manager interpretation. 1. Clinical response: Non ischemic 2. Electrocardiographic response: Non ischemic Findings: The myocardial perfusion scan demonstrates no fixed or reversible perfusion defects. LVEF is estimated at 65%. IMPRESSION: Negative myocardial perfusion scan
--- NOTE | 2019-01-22 15:26 | NUR ---
NURSE NOTES: Dr. Rivera and Dr. Beatty confirmed the patient to be discharged to home as his treadmill stress test was negative. Called Shannon, friend, for the ride back to the patient's home via private vehicle per the patient's request. Will discharge the patient in a safe manner. Will continue plan of care until discharge.
--- NOTE | 2019-01-22 15:28 | Internal Med Progress Note ---
Subjective Physician Name Camron Beatty Attending Physician Camron Beatty MD Current Medications Medications (Trade) Dose Ordered Sig/Abby Route PRN Reason Start Time Stop Time Status Last Admin Dose Admin Acetaminophen/ Hydrocodone Bitart ([place] 5/325) 1 tab Q4H PRN ORAL Moderate Pain (Pain Scale 4-6) 01/21/19 06:45 01/28/19 06:44 01/21/19 09:03 Albuterol/ Ipratropium (Albuterol/ Ipratropium) 3 ml Q4H PRN HHN Shortness of Breath 01/21/19 11:30 01/26/19 11:29 01/21/19 19:26 Aspirin (ASA) 81 mg DAILY ORAL 01/21/19 10:00 02/20/19 09:59 01/22/19 09:21 Atorvastatin Calcium (Lipitor) 10 mg BEDTIME ORAL 01/21/19 21:00 02/20/19 20:59 01/21/19 20:54 Carvedilol (Coreg) 3.125 mg EVERY 12 HOURS ORAL 01/21/19 21:00 02/20/19 20:59 Heparin Sodium (Porcine) (Heparin 5000 units/ml) 5,000 units EVERY 12 HOURS SUBQ 01/21/19 09:00 02/20/19 08:59 01/22/19 09:24 Lisinopril (Zestril) 2.5 mg DAILY ORAL 01/21/19 10:00 02/20/19 09:59 01/21/19 09:45 Nitroglycerin (Ntg) 0.4 mg Q5M PRN SL Prn Chest Pain 01/21/19 06:45 02/20/19 06:44 Ondansetron HCl (Zofran) 4 mg Q6H PRN ORAL Nausea & Vomiting 01/21/19 09:45 02/20/19 09:44 01/21/19 18:51 Promethazine HCl/ Codeine (Phenergan with Codeine) 5 ml Q4H PRN ORAL For Cough 01/21/19 11:30 02/20/19 11:29 Theophylline (Finn-Dur) 100 mg EVERY 12 HOURS ORAL 01/21/19 21:00 02/20/19 20:59 01/21/19 20:55 Trimethoprim/ Sulfamethoxazole (Bactrim-DS) 1 tab TWICE A DAY ORAL 01/21/19 18:00 01/28/19 17:59 01/22/19 09:21 Allergies: Coded Allergies: No Known Allergies (Unverified , 06/05/18) Subjective awake, alert, responsive, NAD, No CP or SOB Objective Last Vital Signs Date Time Temp Pulse Resp B/P (MAP) Pulse Ox O2 Delivery O2 Flow Rate FiO2 01/22/19 09:00 Room Air 01/22/19 09:00 106/59 01/22/19 09:00 97 01/22/19 08:00 98.6 20 98 01/21/19 19:27 21 Laboratory Tests Test 01/22/19 05:44 White Blood Count 7.6 K/UL (4.8-10.8) Red Blood Count 4.97 M/UL (4.70-6.10) Hemoglobin 15.2 G/DL (14.2-18.0) Hematocrit 46.3 % (42.0-52.0) Mean Corpuscular Volume 93 FL (80-99) Mean Corpuscular Hemoglobin 30.6 PG (27.0-31.0) Mean Corpuscular Hemoglobin Concent 32.8 G/DL (32.0-36.0) Red Cell Distribution Width 12.2 % (11.6-14.8) Platelet Count 232 K/UL (150-450) Mean Platelet Volume 7.0 FL (6.5-10.1) Neutrophils (%) (Auto) 71.1 % (45.0-75.0) Lymphocytes (%) (Auto) 16.6 % (20.0-45.0) L Monocytes (%) (Auto) 9.9 % (1.0-10.0) Eosinophils (%) (Auto) 1.5 % (0.0-3.0) Basophils (%) (Auto) 0.8 % (0.0-2.0) Erythrocyte Sedimentation Rate 4 MM/HR (0-20) Sodium Level 141 MMOL/L (136-145) Potassium Level 3.9 MMOL/L (3.5-5.1) Chloride Level 106 MMOL/L (98-107) Carbon Dioxide Level 24 MMOL/L (21-32) Anion Gap 11 mmol/L (5-15) Blood Urea Nitrogen 11 mg/dL (7-18) Creatinine 1.1 MG/DL (0.55-1.30) Estimat Glomerular Filtration Rate > 60 mL/min (>60) Glucose Level 94 MG/DL (74-106) Calcium Level 8.9 MG/DL (8.5-10.1) Phosphorus Level 3.7 MG/DL (2.5-4.9) Magnesium Level 1.9 MG/DL (1.8-2.4) Total Bilirubin 0.3 MG/DL (0.2-1.0) Aspartate Amino Transf (AST/SGOT) 13 U/L (15-37) L Alanine Aminotransferase (ALT/SGPT) 18 U/L (12-78) Alkaline Phosphatase 57 U/L (46-116) Troponin I 0.026 ng/mL (0.000-0.056) Total Protein 7.4 G/DL (6.4-8.2) Albumin 3.7 G/DL (3.4-5.0) Globulin 3.7 g/dL Albumin/Globulin Ratio 1.0 (1.0-2.7) Microbiology Date/Time Source Procedure Growth Status 01/21/19 11:30 Sputum Gram Stain - Final Resulted 01/21/19 11:30 Sputum Sputum Culture - Preliminary NORMAL UPPER RESPIRATORY VICK AT 24 ... Resulted Intake and Output 01/21/19 01/22/19 18:59 06:59 Intake Total 450 ml Balance 450 ml Intake Oral 450 ml # Voids 2 1 Objective Physical Exam General: No acute distress, awake and alert HEENT: NCAT, sclera anicteric, PERRL, EOMI. Neck: Supple, no significant jugular venous distention, Lungs: Good inspiratory effort, no accessory muscle use, clear to auscultation bilaterally, no Wheeze or Rales. Heart: Regular rate and rhythm, normal S1/S2, no murmurs/gallops Abdomen: soft, nontender, nondistended. Normoactive bowel sounds. / Rectal: Refused and deferred. Extremities: No Cyanosis , clubbing or edema. Neuro: A&O x 3, Able to move all extremities Skin: warm, no rashes or lesions Psych: Normal mood and affect Assessment/Plan Assessment/Plan 1) Acute bronchitis (2) Atypical chest pain (3) Costochondritis (4) S/P CABG x 1 (5) CAD (coronary artery disease) Assessment/Plan all troponin are negative stress test pending, if negative may go home. echo reviewed, EF wnl,mild diastolic dysfunction. Camron Beatty MD Jan 22, 2019 15:28
[2019-01-22 16:00] VITALS: BP 101/52
--- NOTE | 2019-01-22 17:30 | NUR ---
NURSE NOTES: The patient got discharged to home with Ashlie, friend with Dr. Rivera's order in a safe manner. The patient was stable in terms of vital signs and physical conditions. The patient denies of acute distress shortness of breath, or chest pain. The patient's belongings checked except 1 knife that is still with the information systems security developer and the form signed by the patient. The patient will return back to get the knife. The patient's IV, nameband, and telebox were removed. Discharge teaching and instruction given to the patient and signed by the patient. Home medication stored at the pharmacy was given back to the patient. The patient got discharged back to home in a safe manner.
--- NOTE | 2019-01-22 18:13 | NUR ---
NURSE NOTES: Based on the belongings inventory sheet, 1 knife that the patient brought was given to security (security name is Chuck) during hospitalization for safety. As the patient is being discharged back to home, the nurse called security so that the security can return the knife back to the patient. tracy Ghotra, came up but was not able to locate the knife since the security assurance analyst stored at the safe place. tracy Iraheta, asked the patient to come back to picking supervisor knife when the staffing branch manager is available. The patient became aggressive and demanding to the security. The charge nurse was notified.
--- NOTE | 2019-01-24 09:43 | Discharge Summary ---
Discharge Summary Discharge Summary _ DATE OF ADMISSION: 01/21/2019 DATE OF DISCHARGE: 01/22/2019 ADMITTING MD: Dr. Camron Beatty DISCHARGED BY: Dr. Geovanna Rivera CONSULTANTS: Dr. Geovanna Rivera BRIEF HOSPITAL COURSE: Patient is a 53-year-old -[place] male, with history of coronary artery disease, who presented with chief complaint of chest pain. Symptoms started on January 20, 2019. The patient was at work. He began to experience chest pain. Chest pain was substernal. There was no radiation to the jaw or to the left shoulder. He has medical history significant for coronary artery disease status post CABG in 2016. He was given aspirin and nitroglycerin by EMS. There was no relief with nitro. On evaluation at the ED, vital signs were stable. EKG was in normal sinus rhythm with no acute changes. Blood work did not show any leukocytosis. Hemoglobin and hematocrit were stable. Initial troponin negative. Urinalysis negative. Chest x-ray did not show any acute disease. Due to his risk factors , he was admitted for evaluation of chest pain. He was admitted to monitored floor. Cardiac enzymes were monitored. He was continued on lisinopril and carvedilol. Continued on atorvastatin. He was given antiplatelet therapy. Echocardiogram done showed ejection fraction 55% with mild diastolic dysfunction, no aortic insufficiency. Beater Boss consulted. He was given respiratory treatment. He was started on Theodur. He was given Bactrim for bronchitis. Cardiac enzymes were negative. He underwent myocardial perfusion scan. Results were nonischemic. There was no demonstrated fixed or reversible perfusion defect. LVEF estimated 65%. He was eventually cleared for discharge home. FINAL DIAGNOSES: Acute bronchitis Atypical chest pain Costochondritis Coronary artery disease status post coronary artery bypass graft DISPOSITION: Patient was discharged home. DISCHARGE MEDICATIONS: Refer to Discharge Medication List. DISCHARGE INSTRUCTIONS: Follow-up in a week. I have been assigned to complete a discharge summary on this account, I was not involved with the patient's management.--MADELIN Groves Jacqueline Robles NP Jan 24, 2019 09:43
--- NOTE | 2019-01-24 15:30 | Cardiology Report ---
APPROVED REPORT EKG Measurement Heart [id number] Normal sinus rhythm ST elevation, probably due to early repolarization Borderline ECG
== END 2019-01-22 17:30 | disposition home or self-care (01) | DRG 145 ==
LOC: EDBD 01:47 → EMR 02:30 → 2E 02:47 → EDBEDREQ 03:09
DX: J20.9 Acute bronchitis, unspecified (principal); M94.0 Chondrocostal junction syndrome [Tietze]; Z95.1 Presence of aortocoronary bypass graft; Z90.49 Acquired absence of other specified parts of digestive tract; Z79.82 Long term (current) use of aspirin; I25.10 Atherosclerotic heart disease of native coronary artery without angina pectoris; I10 Essential (primary) hypertension; E78.00 Pure hypercholesterolemia, unspecified; R07.89 Other chest pain
CPT/HCPCS: 36415; 71045; 78452; 80053; 80061; 81003; 83735; 84100; 84484; 85025; 85651; 87070; 87081; 87205; 93005; 93017; 93306; 94640; 99285; J7620